=== PATIENT | female | born 1970 | race Caucasian/White ===

== ENCOUNTER 2019-02-14 17:51 | Emergency (ER) | payer BC ==
[2019-02-14 18:26] LABS: Absolute Lymphocytes (CBC) 1.6 K/uL (0.7-4.9); Absolute Monocytes 0.4 K/uL (0.1-1.3); Absolute Neutrophil 4.8 K/uL (1.8-8.0); Basophils % 0.4 % (0-1.3); Eosinophils % 2.2 % (0-4.4); Hematocrit 37.1 % (36.0-45.0); Lymphocytes % 23.5 % (15.3-44.8); MPV 10.5 fL (7.6-11.3); Monocytes % 5.6 % (3.3-12.3); RBC Red Blood Cell Count 4.28 M/uL (3.86-4.86)
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
[2019-02-14] MEDS ORDERED: KETOROLAC 30 MG/ML INJ ONE ×2 (18:46→19:25)
[2019-02-14] MEDS ORDERED: NA CHLORIDE 0.9% 1,000 ML ONE (18:46)
[2019-02-14] MEDS ORDERED: DIAZEPAM 5 MG TABLET ONE (18:46)
[2019-02-14 18:49] LABS: Potassium 3.8 mmol/L (3.5-5.1)
[2019-02-14 19:49] LABS: Urine Blood TRACE (NEG); Urine Glucose NEGATIVE (NEG); Urine Protein NEGATIVE (NEG); Urine Specific Gravity <1.005 (1.005-1.030); Urine pH 6.5 (5.0-7.0)
== END 2019-02-14 19:53 | disposition home or self-care (01) ==
LOC: ER 17:51
DX: S16.1XXA Strain of muscle, fascia and tendon at neck level, initial encounter (principal); V49.9XXA Car occupant (driver) (passenger) injured in unspecified traffic accident, initial encounter; E11.9 Type 2 diabetes mellitus without complications; I10 Essential (primary) hypertension; D64.9 Anemia, unspecified; Z88.1 Allergy status to other antibiotic agents; Z79.84 Long term (current) use of oral hypoglycemic drugs
CPT/HCPCS: 36415; 70450; 72125; 80048; 81003; 84703; 85025; 86850; 86900; 86901; 96361; 96374; 99285; J7030

== ENCOUNTER → 2025-01-30 | Day surgery (SDC) | payer BC ==
[~2025-01-30] MED LIST: FENTANYL CITR 100 MCG/2 ML ONE; GLYCOPYRROLATE 0.2 MG/ML SYR ONE; KETOROLAC 30 MG/ML INJ ONE; LIDOCAINE 1% MPF 5 ML VIAL ONE; MIDAZOLAM HCL 2 MG/2 ML INJ ONE; Mastisol Adhesive Liq ONE; ONDANSETRON 4 MG/2 ML VIAL ONE; Phenylephrine HCl 10 MG/ML 1 ML VIAL ONE; propofoL 200 MG/20 ML VIAL IV ONE
[2025-01-30 06:33] LABS: Absolute Basophils 0.1 K/uL (0-0.5); Absolute Eosinophils 0.2 K/uL (0-0.5); Absolute Lymphocytes (CBC) 2.1 K/uL (0.7-4.9); Absolute Monocytes 0.5 K/uL (0.1-1.3); Absolute Neutrophil 4.3 K/uL (1.8-8.0); Eosinophils % 3.2 % (0-4.4); Hematocrit 41.4 % (36.0-45.0); MCH 29.3 pg (27.0-35.0); MCHC 33.8 g/dL (32.0-36.0); MCV 86.5 fL (80-100); MPV 9.5 fL (7.6-11.3); Monocytes % 6.4 % (3.3-12.3); Neutrophils % 60.4 % (41.7-73.7); Nucleated Red Blood Cells % 0.1 % (0-0); Platelets 289 thou/uL (152-406); RBC Red Blood Cell Count 4.78 M/uL (3.86-4.86); Red Cell Distribution Width 14.2 % (12.1-15.2)
[2025-01-30 06:45] LABS: Anion Gap 7.7 mEq/L (5.0-15.0); Potassium 3.7 mEq/L (3.5-5.1)
[2025-01-30] MEDS: NA CHLORIDE 0.9% 1,000 ML ONE (07:00)
--- NOTE | 2025-01-30 07:32 | RAD REPORT ---
EXAM: Chest Pa And Lat (2 Views) HISTORY: 54 years Female PREOP COMPARISON: None. FINDINGS: LUNGS/PLEURA: The lungs are clear. No pleural effusions or pneumothorax. No pulmonary edema. CARDIAC/MEDIASTINUM: The cardiac silhouette is within normal limits. UPPER ABDOMEN: No significant abnormality. BONES: No acute abnormality. LINES/TUBES/OTHER: N/A IMPRESSION: No evidence of acute cardiopulmonary disease.
[2025-01-30] MEDS: CEFAZOLIN SODIUM 1 GM/VIAL ONE (11:50)
--- NOTE | 2025-01-30 12:56 | P.BOP ---
Preoperative diagnosis: right breast mass , atypical ductal hyperplasia Postoperative diagnosis: same Primary procedure: Right breast lumpectomy needle localized Estimated blood loss: <10cc Specimen: mass Findings: lesion and clip within the specimen by Dr Scott Anesthesia: General Complications: None Transferred to: Recovery Room Condition: Good
[2025-01-30] MEDS: MEPERIDINE HCL 25 MG/ML SYR ONE (13:01)
[2025-01-30 13:20] VITALS: O2SAT 100
[2025-01-30 13:32] VITALS: BP 123/76; TEMP 98.7
--- NOTE | 2025-02-01 12:44 | EKG ---
Test Date: 2025-01-30 Test Time: 06:38:40 [place] [employer]: ET MEASUREMENT RESULTS: Intervals: Rate: 71 NM: 132 QRSD: 90 QT: 382 QTc: 415 [place]: P: 50 NM: 132 QRS: 74 T: 69 INTERPRETIVE STATEMENTS: Normal sinus rhythm Normal ECG No previous ECG available for comparison Electronically Signed On 02-01-25 12:38:12 CDT by Juventino Harris
--- NOTE | 2025-02-02 15:31 | RAD REPORT ---
EXAM DESCRIPTION: [facility] BREAST TISSUE SAMPLE CLINICAL HISTORY:LUMPECTOMY COMPARISON: None TECHNIQUE: Full-field mammographic views of the breast sample were obtained as a diagnostic study. FINDINGS: Stable mammogram obtained with wire present and biopsy clip approximately 6 mm from the edg e of the sample. The biopsy clip was present at the confluence of row 5/6 and column E/F. IMPRESSION: Lumpectomy specimen containing microcalcifications and the biopsy clip. Please note that in patients with heterogeneously dense/extremely dense breasts, the sensitivity of s creening mammography is reduced. Adjunct screening modalities such as screening breast ultrasound or breast MRI can be considered if deemed appropriate in this clinical situation. BI-Rads: BI-RADS - Known Biopsy - Proven Malignancy Density: C-"The breasts are heterogeneously dense, which may obscure small masses." *A negative x-ray report should not delay biopsy if a dominant or clinically suspicious mass is present. 4.8% of cancers are not identified by x-ray. *A negative report may reinforce clinical impression. *Adenosis and dense breasts may obscure an underlying neoplasm. *False positive reports average 6-10%.
--- NOTE | 2025-02-02 19:52 | RAD REPORT ---
EXAMINATION: PLACEMENT OF Right BREAST NEEDLE LOCALIZATION WIRE USING MAMMOGRAPHIC GUIDANCE Preoperative placement of breast needle localization wire. CLINICAL INDICATION: Female, 54 years old. LUMPECTOMY INFORMED CONSENT: The risks, benefits, alternatives, and potential complications of image guided heraclio st needle localization were discussed with the patient. An Informed consent sheet was signed. The risks include but are not limited to the following: bleeding, infection, vascular injury, organ inclu de but are not limited to the following: bleeding, infection, vascular injury, pneumothorax, allergic reaction, and the need for emergent surgery/procedures, needle dislocation. LOCALIZATION SITE: Upper outer quadrant of the right breast at the location of the biopsy marker WIRE: Kopans wire needle localization needle device, Superior approach. COMPLICATION: None. FINDINGS: Appropriate timeout procedure was preformed. The skin was prepped in the usual fashion. The soft tissues were anesthetized with lidocaine. Utilizing mammographic guidance, a needle localization wire was placed into the location described above. Localization wire was deposited at th e appropriate site in the Rightbreast as described above. Dressing was applied after the procedure. The patient tolerated the procedure well without immediate complication. The patient was then transpo rted to the preoperative holding area. IMPRESSION: Successful needle localization of the Right breast as described above. Specimen radiograph is recomme nded. BI-RADS - Known Biopsy - Proven Malignancy C: The breasts are heterogeneously dense, which may obscure small masses. Please note that in patients with heterogeneously dense/extremely dense breasts, the sensitivity of s creening mammography is reduced. Adjunct screening modalities such as screening breast ultrasound or breast MRI can be considered if deemed appropriate in this clinical situation.
== END | disposition home or self-care (01) ==
LOC: OR 06:07
PROVIDERS: ATTEND Surgery
PROC: 0HBT0ZZ Excision of Right Breast, Open Approach (ICD-10-PCS; principal; 2025-01-30 11:36)
DX: D05.01 Lobular carcinoma in situ of right breast (principal); N60.91 Unspecified benign mammary dysplasia of right breast
CPT/HCPCS: 19301; 93005; 85025; 80048; 36415; 82947; 88307; 71046; 76098; 19282; J2704; J2003; J2371; J2250; J3010; J2175; J2405; J7030; J0690; 88305